=== PATIENT | male | born 1965 | race Asian ===

== ENCOUNTER 2017-08-23 20:20 | Emergency (ER) | payer SELFPAY ==
[2017-08-23 20:21] VITALS: BP 124/84
[2017-08-23] MEDS ORDERED: DIPH,PERTUSS(ACELL),TET VAC/PF 0.5 ML IM-VACC ONE ×2 (20:36→21:00)
[2017-08-23] MEDS ORDERED: LIDOCAINE-MPF 1%, 5ML ONE (20:45)
[2017-08-23] MEDS ORDERED: LIDOCAINE 1%, 10ML INFIL ONE (21:00)
== END 2017-08-23 21:45 | disposition home or self-care (01) ==
LOC: ED 21:34
DX: S51.811A Laceration without foreign body of right forearm, initial encounter (principal); W26.0XXA Contact with knife, initial encounter; Y93.89 Activity, other specified; Y99.0 Civilian activity done for income or pay; Y92.69 Other specified industrial and construction area as the place of occurrence of the external cause
CPT/HCPCS: 13121; 90471; 90715